=== PATIENT | female | born 1950 | race African-American/Black ===

== ENCOUNTER → 2016-07-08 | Outpatient (CLI) | payer OTHER ==
[2015-08-19 12:25] VITALS: BP 112/69
[~2016-07-08] MED LIST: ATOR10TA60 PO; HYDR-2678 PO; LISI-334 PO; SOLI10TA PO
--- NOTE | 2016-07-08 09:45 | RAD ---
DATE: 07/08/2016 EXAM: DIGITAL SCREEN RT W/CAD HISTORY: Previous left breast cancer COMPARISON: 06/22/2015, 06/27/2014 This study was interpreted with the benefit of Computerized Aided Detection (CAD). FINDINGS: The right breast is heterogeneously dense. On the cc view there is a new small density now seen anterolaterally which corresponds to the location of an interval biopsy. Reportedly that biopsy findings were benign. This probably represents scarring. No other new or enlarging breast densities are seen. Benign type calcifications are present. No suspicious microcalcifications have developed. IMPRESSION: 1. Postsurgical change anterolaterally in the right breast. 2. No mammographic evidence of malignancy. BI-RADS CATEGORY: 2 BENIGN FINDING(S) RECOMMENDED FOLLOW-UP: 12M 12 MONTH FOLLOW-UP PQRS compliance statement: Patient information was entered into a reminder system with a target due date for the next mammogram. Mammography is a sensitive method for finding small breast cancers, but it does not detect them all and is not a substitute for careful clinical examination. A negative mammogram does not negate a clinically suspicious finding and should not result in delay in biopsying a clinically suspicious abnormality. "Our facility is accredited by the [employer] Mammography Program."
== END | disposition home or self-care (01) ==
LOC: MAMMO 09:02
PROVIDERS: ATTEND Pediatrics
DX: Z12.31 Encounter for screening mammogram for malignant neoplasm of breast (principal)
CPT/HCPCS: 77052; G0202; 77067

== ENCOUNTER → 2017-07-20 | Outpatient (CLI) | payer OTHER | END | disposition home or self-care (01) | LOC: US 12:42 | DX: N63.10 Unspecified lump in the right breast, unspecified quadrant (principal) | CPT/HCPCS: 76641 ==

== ENCOUNTER → 2018-01-26 | Outpatient (CLI) | payer OTHER ==
[2015-08-19 12:25] VITALS: BP 112/69
[~2018-01-26] MED LIST changes: -SOLI10TA PO; +SOLI10TA2 PO
--- NOTE | 2018-01-26 11:37 | RAD ---
Right breast ultrasound, 01/26/2018: History: Follow-up breast nodule Previous study of 07/20/2017 a small elongated hypoechoic nodule was noted at the 3:30 location approximately 8 cm from the nipple. Today we performed a targeted ultrasound exam of that region. That nodule is redemonstrated on today's exam. It measures approximately 8 millimeters in greatest length. It is wider than tall measuring only 3 mm in AP dimension. Its margins are smooth. Allowing for technical differences it appears unchanged. Again noted is a smooth simple 8 mm cyst at the 4:00 location approximately 7 cm the nipple. This probably corresponds to the nodule seen on previous mammograms. No new abnormality is detected. IMPRESSION: 1. Small simple cyst at the 4:00 location. 2. Stable small hypoechoic nodule at the 3:30 location likely representing a complicated cyst or fibroadenoma. Further sonographic follow-up in 6 months, at the time of the patient's yearly mammography is suggested. BI-RADS 3-probably benign findings
== END | disposition home or self-care (01) ==
LOC: US 10:24
PROVIDERS: ATTEND Pediatrics
DX: Z09 Encounter for follow-up examination after completed treatment for conditions other than malignant neoplasm (principal); N60.01 Solitary cyst of right breast; N63.14 Unspecified lump in the right breast, lower inner quadrant
CPT/HCPCS: 76641

== ENCOUNTER → 2018-10-19 | Outpatient (CLI) | payer OTHER ==
[2015-08-19 12:25] VITALS: BP 112/69
--- NOTE | 2018-10-19 13:34 | RAD ---
DATE: 10/19/2018. EXAM: MAMMO GIBSON DIAG RT HISTORY: Routine screening. History of left mastectomy. COMPARISON: Previous mammogram from 07/11/2017. This study was interpreted with the benefit of Computerized Aided Detection (CAD). FINDINGS: Breast Density: HETERO The breast parenchyma Is heterogeneously dense, which could reduce sensitivity of mammography. Breast parenchyma level C. The skin and nipple are within normal limits. Scattered benign-appearing calcifications noted. IMPRESSION: Stable mammogram. However patient was supposed to get six-month follow-up ultrasound. BI-RADS CATEGORY: 0 INCOMPLETE: NEED ADDITIONAL IMAGING EVAULATION AND/OR PRIOR MAMMOGRAMS FOR COMPARISON RECOMMENDED FOLLOW-UP: ADD ADDITIONAL IMAGING ultrasound recommended of the right breast. PQRS compliance statement: Patient information was entered into a reminder system with a target due date for the next mammogram. Mammography is a sensitive method for finding small breast cancers, but it does not detect them all and is not a substitute for careful clinical examination. A negative mammogram does not negate a clinically suspicious finding and should not result in delay in biopsying a clinically suspicious abnormality. "Our facility is accredited by the [employer] Mammography Program."
== END | disposition home or self-care (01) ==
LOC: MAMMO 09:45
PROVIDERS: ATTEND Pediatrics
DX: Z12.31 Encounter for screening mammogram for malignant neoplasm of breast (principal); N64.89 Other specified disorders of breast
CPT/HCPCS: 77065; G0279; 77061

== ENCOUNTER → 2018-10-26 | Outpatient (CLI) | payer OTHER ==
[2015-08-19 12:25] VITALS: BP 112/69
--- NOTE | 2018-10-26 13:47 | RAD ---
INDICATION: 68 year-old female presents for short interval follow-up of abnormalities seen on prior breast ultrasound TECHNIQUE: Targeted high resolution sonography of the region of clinical concern was performed. COMPARISON: None ULTRASOUND FINDINGS: Targeted ultrasound of the previously described probably benign finding was again performed. 3:30 position, 8 cm from the nipple: The hypoechoic mass is more lobular on today's examination and marginally increased in size measuring 0.9 x 0.6 x 0.4 cm (when measured in a similar fashion to prior), previously 0.9 x 0.6 x 0.3 cm. 4:00 position, 7 cm from the nipple: An anechoic avascular mass of circumscribed margins and round/oval shape is present. It demonstrates posterior acoustic enhancement and a parallel orientation. It measures 0.7 x 0.7 x 0.6 cm, previously 0.8 x 0.8 x 0.6 cm. 3:00 position, 1 cm from the nipple: An anechoic avascular mass of circumscribed margins and round/oval shape is present. It demonstrates posterior acoustic enhancement and a parallel orientation. It measures 0.8 x 0.7 x 0.6 cm. 3:00 position, 2 cm from the nipple: A near anechoic mass of circumscribed margins and internal homogeneous low level echoes is present with parallel orientation and is of oval/round shape. There is no internal vascularity on Doppler interrogation. It demonstrates posterior acoustic enhancement and measures 0.6 x 0.5 x 0.3 cm. IMPRESSION: Suspicious finding at the 3:30 position, 8 cm from the nipple with changes in morphology on today's examination and marginal increase in size. Probable complicated cyst versus solid mass at the 3:00 position, 2 cm from the nipple with low-level internal echoes. RECOMMENDATION: Recommend biopsy of the lesion at the 3:30 position, 8 cm from nipple. In addition, biopsy/aspiration of the probable complicated cyst versus solid mass at the 3:00 position, 2 cm from the nipple can also be performed at the same time. BI-RADS 4: Suspicious Electronically signed by: Tan Henderson MD (10/26/2018 1:44 PM) [facility]
== END | disposition home or self-care (01) ==
LOC: US 11:43
PROVIDERS: ATTEND Pediatrics
DX: N63.14 Unspecified lump in the right breast, lower inner quadrant (principal)
CPT/HCPCS: 76641

== ENCOUNTER → 2018-12-11 | Outpatient (CLI) | payer OTHER ==
[2015-08-19 12:25] VITALS: BP 112/69
[~2018-12-11] MED LIST changes: +LIDOCAINE 1% Multi-Dose 20 ML VIAL. INJ ONE
--- NOTE | 2018-12-11 16:32 | RAD ---
Examination: US GUID NDL PLACE/ASPI/BX History: Right breast mass Comparison/Correlation: 07/20/2017, 10/26/2018 right breast ultrasound exam Findings: Risks and benefits of ultrasound-guided biopsy and aspiration were discussed with the patient. Informed consent was obtained. Limited ultrasound imaging was performed. The lesion described at the 3:30 position 8 cm from the nipple could not be delineated at this time. Biopsy was not performed as result. Right breast 3:00 region 2 cm from nipple complex cyst or mass was identified. Medial approach was utilized. Cleansing with ChloraPrep was performed. Sterile drapes were placed. Sterile gel and sterile probe cover were utilized. Approximately 5 cc 1 percent lidocaine was administered. 18-gauge spinal needle was then placed under ultrasound guidance into the lesion. Fluid was aspirated. This lesion resolved as expected of a complex cyst. No clip marker was placed. The patient tolerated procedure well without immediate complications. Impression: Successful aspiration of the 3:00 complex cyst. The 3:30 lesion 8 cm from nipple could not be delineated. This finding may represent a lymph node. Considering the relatively stable size, interval follow-up ultrasound examination in 1 year is recommended. Electronically signed by: Vivek Lopez MD (12/11/2018 4:29 PM) [facility]
== END | disposition home or self-care (01) ==
LOC: US 14:01
PROVIDERS: ATTEND Pediatrics
DX: N63.10 Unspecified lump in the right breast, unspecified quadrant (principal)
CPT/HCPCS: 19083; 76942

== ENCOUNTER → 2019-10-23 | Outpatient (CLI) | payer OTHER ==
[2015-08-19 12:25] VITALS: BP 112/69
[~2019-10-23] MED LIST changes: -LIDOCAINE 1% Multi-Dose 20 ML VIAL. INJ ONE
--- NOTE | 2019-10-23 17:35 | RAD ---
EXAM: UNILATERAL RIGHT DIGITAL 3D SCREENING MAMMOGRAPHY. HISTORY: Personal history of left breast cancer status post left mastectomy. Benign right breast biopsies. Routine screening. TECHNIQUE: Unilateral right digital 3D and tomographic images were obtained in CC and MLO projections. Computer-aided detection was applied. COMPARISON: 10/19/2018, 07/11/2017. COMPOSITION: C. The breasts are heterogeneously dense, which may obscure small masses. FINDINGS: There are no suspicious masses, microcalcifications or architectural distortion. The parenchymal pattern is stable. A region of stable architectural distortion in the subareolar region is likely postprocedural. Coarse calcifications are benign. BI-RADS CATEGORY 2: Benign. RECOMMENDATION: 1. Routine screening mammography in one year. If mammography demonstrates dense breast tissue (heterogenously dense or extremely dense, category C or D), which could hide abnormalities, and if other risk factors for breast cancer have been identified, supplemental screening tests that may be suggested by the ordering physician may be of benefit. Dense breast tissue, in and of itself, is a relatively common condition. Therefore, this information is not provided to cause undue concern, but rather to raise awareness and to promote discussion with the referring physician regarding the presence of other risk factors, in addition to dense breast tissue. The results of this mammography examination is provided to the patient and referring physician. The patient should contact their referring physician if any questions or concerns exist regarding this report. PQRS compliance statement - Patient information was entered into a reminder system with a target due date for the next mammogram. "Our facility is accredited by the [employer] Mammography [employer]." Electronically signed by: Mary Trevino MD (10/23/2019 5:32 PM) [facility]
== END | disposition home or self-care (01) ==
LOC: MAMMO 13:01
PROVIDERS: ATTEND Pediatrics
DX: Z12.31 Encounter for screening mammogram for malignant neoplasm of breast (principal); N64.89 Other specified disorders of breast; Z85.3 Personal history of malignant neoplasm of breast
CPT/HCPCS: 77061

== ENCOUNTER → 2019-11-12 | Outpatient (CLI) | payer OTHER ==
[2015-08-19 12:25] VITALS: BP 112/69
[~2019-11-12] MED LIST changes: +ALBU2.5V8 INH; +ASCO500C PO; +ASPI-630 PO; +CARV25TA2 PO; +GLIP5TAB10 PO; +LINA5TAB PO; +NAPR-695 PO; +OXYB5TAB10 PO; +SPIR25TA5 PO; +TURM538C PO
[2019-11-12 09:21] LABS: BASO % 1 % (0-3); EOS # 0.3 x10^3/uL (0.0-0.7); EOS % 6 % (0-3); HEMATOCRIT 40.1 % (36.0-47.0); HEMOGLOBIN 13.2 g/dL (12.0-15.5); LYMPH # 2.9 x10^3/uL (1.0-4.8); LYMPH % 56 % (24-48); MEAN CORPUSCULAR HEMOGLOBIN 30 pg (25-35); MEAN CORPUSCULAR HGB CONC 33 g/dL (31-37); MEAN CORPUSCULAR VOLUME 91 fL (79-100); MONO # 0.3 x10^3/uL (0.0-1.1); MONO % 6 % (0-9); NEUT # 1.7 x10^3/uL (1.8-7.7); NEUT % 32 % (31-73); PLATELET COUNT 129 x10^3/uL (140-400); RED BLOOD COUNT 4.41 x10^6/uL (3.50-5.40); RED CELL DISTRIBUTION WIDTH 15.2 % (11.5-14.5); WHITE BLOOD COUNT 5.3 x10^3/uL (4.0-11.0)
[2019-11-12 09:42] LABS: ALBUMIN 3.6 g/dL (3.4-5.0); ANION GAP 7 (6-14); BLOOD UREA NITROGEN 22 mg/dL (7-20); CALCIUM 8.8 mg/dL (8.5-10.1); CARBON DIOXIDE 28 mmol/L (21-32); CHLORIDE 107 mmol/L (98-107); CREATININE 1.2 mg/dL (0.6-1.0); GFR 53.7; GLUCOSE 125 mg/dL (70-99); POTASSIUM 3.9 mmol/L (3.5-5.1); PROTHROMBIN TIME PATIENT 14.7 SEC (11.7-14.0); SODIUM 142 mmol/L (136-145)
[2019-11-12 09:45] LABS: C-REACTIVE PROTEIN < 0.5 mg/L (0-3.3)
[2019-11-13 01:09] LABS: HEMOGLOBIN A1C 5.3 % (4.8-5.6)
== END | disposition home or self-care (01) ==
LOC: SURGPAT 13:02
PROVIDERS: ATTEND Orthopaedic Surgery
DX: M17.12 Unilateral primary osteoarthritis, left knee (principal)
CPT/HCPCS: 36415; 80048; 82040; 82306; 83036; 85025; 85610; 85730; 86140; 87641

== ENCOUNTER → 2020-09-03 | Outpatient (CLI) | payer OTHER ==
[2015-08-19 12:25] VITALS: BP 112/69
[~2020-09-03] MED LIST changes: -LISI-334 PO; +LISI20TA18 PO; +MELO15TA23 PO; +WARF-31 PO
--- NOTE | 2020-09-03 13:23 | EKG ---
[facility] [address] [place] [address] Test Date: 2020-09-03 Test Time: 13:17:37 Pat Name: ROOSEVELT RITTER Department: Room: Gender: F Partition Setter: : 1950 Requested By: JAMIA AGUILAR Order Number: [id number] Reading MD: Artie Alston Measurements Intervals [place] Rate: 54 P: 47 TN: 196 QRS: 28 QRSD: 74 T: 50 QT: 398 QTc: 379 Interpretive Statements SINUS RHYTHM QRS(T) CONTOUR ABNORMALITY CONSISTENT WITH ANTEROSEPTAL INFARCT AGE UNDETERMINED ABNORMAL ECG RI6.02 No previous ECG available for comparison Electronically Signed On 09-08-2020 9:25:56 CDT by Artie Alston
[2020-09-03 13:29] LABS: BASO % 1 % (0-3); EOS # 0.2 x10^3/uL (0.0-0.7); EOS % 3 % (0-3); HEMATOCRIT 38.6 % (36.0-47.0); HEMOGLOBIN 13.1 g/dL (12.0-15.5); LYMPH # 3.1 x10^3/uL (1.0-4.8); LYMPH % 50 % (24-48); MEAN CORPUSCULAR HEMOGLOBIN 32 pg (25-35); MEAN CORPUSCULAR HGB CONC 34 g/dL (31-37); MEAN CORPUSCULAR VOLUME 93 fL (79-100); MONO # 0.4 x10^3/uL (0.0-1.1); MONO % 7 % (0-9); NEUT # 2.5 x10^3/uL (1.8-7.7); NEUT % 40 % (31-73); PLATELET COUNT 145 x10^3/uL (140-400); RED BLOOD COUNT 4.15 x10^6/uL (3.50-5.40); RED CELL DISTRIBUTION WIDTH 13.1 % (11.5-14.5); WHITE BLOOD COUNT 6.2 x10^3/uL (4.0-11.0)
[2020-09-03 13:38] LABS: PROTHROMBIN TIME PATIENT 14.3 SEC (11.7-14.0)
[2020-09-03 13:43] LABS: ALBUMIN 3.8 g/dL (3.4-5.0); CALCIUM 9.1 mg/dL (8.5-10.1); CREATININE 1.4 mg/dL (0.6-1.0); GFR 44.9; POTASSIUM 4.3 mmol/L (3.5-5.1)
--- NOTE | 2020-09-03 16:45 | RAD ---
XR CHEST 2V History: Reason: preo -op chest ,knee surgery / Spl. Instructions: / History: Comparison: None. Findings: No consolidation or pleural effusion. Normal heart size. No pneumothorax. Impression: 1. No acute cardiopulmonary process. Electronically signed by: Erick Albright DO (09/03/2020 4:43 PM) [facility]
[2020-09-04 05:37] LABS: HEMOGLOBIN A1C 5.6 % (4.8-5.6)
== END ==
LOC: SURGPAT 12:27
PROVIDERS: ATTEND Orthopaedic Surgery
DX: Z01.818 Encounter for other preprocedural examination (principal); M17.12 Unilateral primary osteoarthritis, left knee; R94.31 Abnormal electrocardiogram [ECG] [EKG]; Z96.652 Presence of left artificial knee joint
CPT/HCPCS: 36415; 71046; 80048; 82040; 82306; 83036; 85025; 85610; 85651; 85730; 87641; 93005

== ENCOUNTER 2020-09-16 09:38 | Observation (INO) | payer OTHER ==
[2020-09-03 13:21] VITALS: BP 136/64
[~2020-09-16] VITALS: Ht 162.6 cm; Wt 77.0 kg
[2020-09-16] VITALS (8 sets, daily range): BP systolic 94–128; BP diastolic 52–70
[~2020-09-16 09:38] MED LIST changes: +ACETAMINOPHEN 500 MG TABLET PO PRN; +INSULIN LISPRO 100 UNIT/ML 3ML VIAL for OP,RR ONLY. SQ PRN; +IV RINGERS,LACTATED 1000ML 1,000 ML IV SCH; -MELO15TA23 PO; +MELOXICAM 7.5 MG TABLET PO PRN; +MORPHINE SULFATE 5 MG, KETOROLAC 30MG VIAL 30 MG, ROPIVacaine 0.5% PF 60 ML, EPINEPHrin... INT ART ONE; +PROCHLORPERAZINE 10 MG/2 ML VIAL. IVP PRN; +TRANEXAMIC ACID 1,000 MG in IV NS 50ML -- 1ST BAG INJ ONE; +TRANEXAMIC ACID 1,000 MG in IV NS 50ML -- 2ND BAG INJ ONE; -WARF-31 PO; +fentaNYL PF VIAL 100 MCG/2 ML VIAL IVP PRN
[2020-09-16] MEDS ORDERED: ONDANSETRON PF 4 MG/2 ML VIAL. ONE (09:51)
[2020-09-16] MEDS ORDERED: LIDOCAINE 2% PF 5 ML VIAL. ONE (09:51)
[2020-09-16] MEDS ORDERED: PROPOFOL 10 MG/ML (20ML) VIAL. IV ONE (09:51)
[2020-09-16] MEDS ORDERED: DEXAMETHASONE SOD PHOS 4 MG/ML VIAL ONE (09:51)
[2020-09-16] MEDS ORDERED: fentaNYL PF VIAL 250 MCG/5 ML VIAL ONE (09:51)
[2020-09-16] MEDS ORDERED: MELO15TA23 PO (10:01)
[2020-09-16] MEDS ORDERED: WARF-31 PO (10:01)
[2020-09-16] MEDS ORDERED: INSULIN LISPRO 100 UNIT/ML 3ML VIAL for OP,RR ONLY. SQ ONE (10:35)
[2020-09-16 10:41] LABS: PROTHROMBIN TIME PATIENT 14.4 SEC (11.7-14.0)
[2020-09-16] MEDS ORDERED: VANCOMYCIN 1 GM VIAL. ONE (10:47)
[2020-09-16] MEDS ORDERED: TRANEXAMIC ACID in NS IVPB 100 ML ONE (10:47)
[2020-09-16] MEDS ORDERED: ePHEDrine PF IN SALINE 50 MG/10 ML SYRINGE. IV ONE (11:59)
[2020-09-16] MEDS ORDERED: GLYCOPYRROLATE 1 MG/5 ML VIAL. ONE (12:12)
--- NOTE | 2020-09-16 12:42 | HP ---
ADMIT DATE: 09/16/2020 PREOPERATIVE HISTORY AND PHYSICAL CHIEF COMPLAINT: Left knee degenerative arthritis and pain. HISTORY: The patient has had well over a year of left knee pain going on more chronically over several years, but acutely exacerbated by a fall in the shower a little over a year ago. She has had severe pain and limitation of her activities of daily living since then and was contemplating surgery soon after the time of the fall, but had put it off due to COVID concerns and continues to have very worsening and limiting left knee pain. She indicates good control of her diabetes, which is non-insulin dependent. PAST SURGICAL HISTORY: Left breast mastectomy in 2002 and cholecystectomy. SOCIAL HISTORY: Denies smoking or drug use. Occasional alcohol consumption. MEDICATIONS: List is reviewed. ALLERGIES: She has no known drug allergies. REVIEW OF SYSTEMS: She has no recent fever, chills, chest pain, shortness of breath, focal weakness, numbness, tingling, or other constitutional symptoms. PHYSICAL EXAMINATION: VITAL SIGNS: Per admission sheet. HEENT: Atraumatic, normocephalic. HEART: Regular rate and rhythm. LUNGS: Clear to auscultation bilaterally. ABDOMEN: Benign. EXTREMITIES: Examination of the left knee, her range of motion has a flexion contracture of about 8 degrees and flexion to about 85 degrees with significant pain on both. She has crepitus within the patellofemoral joint. Collateral ligaments are stable with some mild medial collateral ligament laxity. Right knee has a range of motion of -2 to 95 degrees. Negative Lilia's test. Anterior, posterior drawer is negative. Lisandra's test is negative. She has normal alignment, stability of bilateral hips and ankles with intact motor function, distal pulses, sensation in both lower extremities throughout. IMAGING: X-rays show severe tricompartmental degenerative change in both knees. IMPRESSION: Left knee pain, worse than right and degenerative arthritis, bilateral knees. TREATMENT AND PLAN: We had previously discussed and reviewed this morning. Risks, benefits, postoperative course of total knee arthroplasty including infection, nerve root or blood vessel damage, premature wear or loosening, continued pain, medical or other anesthetic complications including blood clots among others. All her questions were answered. She wishes to proceed with surgical evaluation and treatment and will undergo outpatient. We will undergo observation in the joint center to follow. CR/MILLY DR: CR/alysha HART: 09/16/2020 11:59 TID: [id number]
--- NOTE | 2020-09-16 13:34 | PDOC4 ---
Operative Note Operative Note Date of surgery: 09/16/2020 Preoperative diagnosis: Degenerative left knee Postoperative diagnosis: Same Operative procedure: Left total knee arthroplasty Surgeon: Haleigh Assist: Braden fox Anesthesia: General Estimated blood loss: 25 cc Complications: None Specimens: Cartilage surfaces to pathology Operative indications: Please see my dictated preoperative history and physical for detailed operative indications and note that we had reviewed preoperatively risks benefits postoperative course of the surgery including the possibility of infection continued pain nerve or blood vessel damage premature wear or loosening instability medical or other anesthetic complications among others and she agrees to proceed with surgical evaluation and treatment having given informed consent Operative text: Patient was identified procedure verified patient placed in the supine position on the operating table. After adequate amounts of general anesthesia were administered the left lower extremity was prepped and draped in standard sterile fashion with a thigh tourniquet and after timeout was performed patient procedure identified and verified the left lower extremity was exsanguinated by Esmarch bandage tourniquet inflated to 300 mmHg and a midline incision was made followed by a medial parapatellar approach fat pad was excised and patella everted and the distal femur drilled to accommodate the intramedullary cutting guide which was set at 5 degrees with standard distal cut. Menisci and cruciate ligaments were excised and a tibial cut was made using the extra medullary cutting guide aligned with the ankle centerline and alignment verified with a spacer and drop shyanne. Tibia was prepared with a size D persona trial component. Femur was sized at a size 7 and AP lateral chamfer cuts were made and ligament balancing carried out. A medial release was carried out and I did achieve excellent stability with a 10 mm trial medial congruent articular surface spacer. Patella resurfacing was not accomplished due to good preservation of her patellar cartilage. She had excellent tracking. Trial components were removed thorough irrigation carried out with normal saline solution and the following Dayanna persona components were cemented in place with polymethylmethacrylate cement: A size D persona natural tibial component and size 7 standard right persona cruciate retaining femur. Excess cement was removed with a curette and a vitamin E medial congruent 10 mm height articular spacer was locked into place and the knee held into extension until cement was dry. Irrigation again carried out with dilute Betadine lavage and normal saline solution and 1 g vancomycin was placed in the knee joint. Retinaculum closed with #1 PDS suture in a running fashion subcutaneous closure with buried Vicryl sutures subcuticular closure with 3-0 strata fix Monocryl. A maria del carmen dressing was placed. Toes were noted to be warm pink following deflation of the tourniquet patient was returned to recovery room in stable condition having tolerated procedure well. Braden fox was present for the pro cedure and assisted in patient positioning prepping draping retraction closure dressings JAMIA AGUILAR MD Sep 16, 2020 13:34
[2020-09-16] MEDS ORDERED: SEVOFLURANE > 120 MINUTES. IH ONE (13:40)
[2020-09-16] MEDS ORDERED: NALOXONE 0.4 MG/ML VIAL. ONE (13:40)
[2020-09-16] MEDS ORDERED: ZOLPIDEM 5 MG TABLET. PO PRN (13:45)
[2020-09-16] MEDS ORDERED: ALBUTEROL SULFATE 2.5 MG/3 ML NEBU. INH PRN (13:45)
[2020-09-16] MEDS ORDERED: CALCIUM CARBONATE 500 MG TAB.CHEW PO PRN (13:45)
[2020-09-16] MEDS ORDERED: diphenhydrAMINE 50 MG/ML VIAL IVP PRN (13:45)
[2020-09-16] MEDS ORDERED: MORPHINE SULFATE 2 MG/ML VIAL. IVP PRN (13:45)
[2020-09-16] MEDS ORDERED: 0.9 % SODIUM CHLORIDE 10 ML DISP.SYRIN. IV PRN (13:45)
[2020-09-16] MEDS ORDERED: IV NORMAL SALINE 1000ML BAG 1,000 ML IV SCH (13:45)
[2020-09-16] MEDS ORDERED: DEXTROSE 50% 25 GM / 50ML DISP.SYRIN. IV PRN (13:45)
[2020-09-16] MEDS ORDERED: fentaNYL PF VIAL 100 MCG/2 ML VIAL IVP PRN (13:45)
[2020-09-16] MEDS ORDERED: PROCHLORPERAZINE 5 MG TABLET. PO PRN (13:45)
[2020-09-16] MEDS ORDERED: MORPHINE SULFATE 2 MG/ML VIAL. ONE (14:10)
[2020-09-16] MEDS: MORPHINE SULFATE 2 MG/ML VIAL. IVP PRN ×2 (14:12→14:22)
[2020-09-16] MEDS ORDERED: HYDROmorphone 2 MG/ML VIAL ONE (14:31)
[2020-09-16] MEDS: HYDROmorphone 2 MG/ML VIAL IVP PRN ×2 (14:33→14:43)
--- NOTE | 2020-09-16 15:02 | RAD ---
INDICATION: Reason: POST OP / Spl. Instructions: / History: COMPARISON: September 2019 IMPRESSION: Left knee: 2 views obtained. Arthroplasty changes without periprosthetic fracture or dislocation. Electronically signed by: Ezio Mckeon MD (09/16/2020 3:00 PM) [id number]
--- NOTE | 2020-09-16 15:15 | NUR ---
As soon pt arrive to unit by bed from PACU needed to go to bathroom. Pt up with walker with assist x's 2. Steady gait and voided 900cc yellow urine. Returned back to bed. Assessment completed. Dressing d/i on left knee. Elevated leg on pillow and applied ice pack. Pt able to wiggle toes easily, warm to touch and pedal pulses + bilaterally. IVF's intact and infusing. Side rails up with call light in reach. Family at bedside. Cont. monitor. Addendum: 09/16/20 at 1634 by RODNEY LI RN Only voided 200cc not 900cc.
[2020-09-16] MEDS ORDERED: WARFARIN 7.5 MG TABLET. PO ONE (16:00)
[2020-09-16] MEDS: glipiZIDE 5 MG TABLET PO SCH ×2 (16:30→21:02)
[2020-09-16] MEDS: CARVEDILOL 12.5 MG TABLET. PO SCH (17:00)
[2020-09-16] MEDS: FERROUS SULFATE 325 MG TABLET. PO SCH (17:25)
[2020-09-16] MEDS: ONDANSETRON PF 4 MG/2 ML VIAL. IVP SCH (17:25)
[2020-09-16] MEDS: ceFAZolin SODIUM IV Push 1 GM VIAL. IVP SCH ×2 (17:31→23:51)
[2020-09-16] MEDS: ONDANSETRON ODT 4 MG TAB.RAPDIS. PO SCH (17:49)
--- NOTE | 2020-09-16 18:56 | NUR ---
Zofran IV given instead of P.O.
[2020-09-16] MEDS: ATORVASTATIN CALCIUM 10 MG TABLET. PO SCH (21:02)
[2020-09-16] MEDS: OXYBUTYNIN CHLORIDE 5 MG TABLET PO SCH (21:02)
[2020-09-17] MEDS: oxyCODONE IR 5 MG TABLET PO PRN ×4 (00:08→20:40)
[2020-09-17 02:40] VITALS: BP 102/57
[2020-09-17 04:52] LABS: PROTHROMBIN TIME PATIENT 15.9 SEC (11.7-14.0)
[2020-09-17] MEDS: ceFAZolin SODIUM IV Push 1 GM VIAL. IVP SCH (05:35)
[2020-09-17] MEDS: traMADol 50 MG TABLET PO SCH ×3 (05:42→17:35)
[2020-09-17] MEDS: ONDANSETRON PF 4 MG/2 ML VIAL. IVP SCH ×3 (05:43→12:00)
[2020-09-17] MEDS: ONDANSETRON ODT 4 MG TAB.RAPDIS. PO SCH ×3 (05:44→12:00)
[2020-09-17] MEDS ORDERED: MAGNESIUM HYDROXIDE 2,400 MG/30 ML ORAL.SUSP. PO PRN (06:00)
[2020-09-17] MEDS ORDERED: GABAPENTIN 100 MG CAPSULE. PO SCH (06:00)
[2020-09-17 06:14] VITALS: BP 102/54
[2020-09-17] MEDS: LINAGLIPTIN 5 MG TABLET PO SCH (08:17)
[2020-09-17] MEDS: ASPIRIN CHEWABLE 81 MG TABLET. PO SCH (08:17)
[2020-09-17] MEDS: MULTIVITAMIN with MINERAL TABLET. PO SCH (08:17)
[2020-09-17] MEDS: glipiZIDE 5 MG TABLET PO SCH ×2 (08:17→20:46)
[2020-09-17] MEDS: ACETAMINOPHEN 500 MG TABLET PO SCH ×3 (08:18→20:40)
[2020-09-17] MEDS: FERROUS SULFATE 325 MG TABLET. PO SCH ×2 (08:18→17:34)
[2020-09-17] MEDS: MELOXICAM 7.5 MG TABLET PO SCH (08:18)
[2020-09-17] MEDS: OXYBUTYNIN CHLORIDE 5 MG TABLET PO SCH ×2 (08:18→20:39)
[2020-09-17] MEDS: SPIRONOLACTONE 25 MG TABLET PO SCH (08:19)
[2020-09-17] MEDS: CARVEDILOL 12.5 MG TABLET. PO SCH ×2 (08:23→17:37)
[2020-09-17] MEDS: LISINOPRIL 20 MG TABLET PO SCH (08:23)
--- NOTE | 2020-09-17 10:34 | NUR ---
Pharmacy Warfarin Dosing Note S: Pharmacy consulted to assist with anticoagulation therapy started 09/16/20 O: ROOSEVELT RITTER F is a 70 year old F with TKA LABS: Last INR: 1.3 Last HGB: 11.6 Last dose of 7.5 mg given on 09/16/20 at 1725 Ongoing Drug Interactions: MOBIC A:INR of 1.3 is below desired range. Target range for this patient is: 1.6 - 2.5 P: Warfarin dose: 4 mg Today at 1600 Bridge Therapy: None Next INR due 09/18/20 AM Pharmacy anticoagulation service will continue to follow. RAE BAHENA RP, 09/17/20 [id number]
[2020-09-17] MEDS ORDERED: ONDANSETRON ODT 4 MG TAB.RAPDIS. PO PRN (12:00)
[2020-09-17] MEDS ORDERED: ONDANSETRON PF 4 MG/2 ML VIAL. IVP PRN (12:00)
[2020-09-17] MEDS ORDERED: WARFARIN 4 MG TABLET. PO ONE (16:00)
[2020-09-17] MEDS ORDERED: BISACODYL 10 MG SUPP.RECT. PR PRN (16:00)
[2020-09-17 17:37] VITALS: BP 108/55
--- NOTE | 2020-09-17 18:34 | PDOC ---
PROGRESS NOTES Date of Service DATE: 09/17/20 TIME: 18:31 Subjective Subjective Problems overnight: Knee is sore, getting around pretty good Objective Vital Signs Vital Signs Date Time Temp Pulse Resp B/P (MAP) Pulse Ox O2 Delivery O2 Flow Rate FiO2 09/17/20 17:37 97.8 56 18 108/55 (72) 96 Room Air 97.8 09/16/20 18:27 18.0 Physical Exam Fredo dressing intact good early range of motion distal neurovascular status intact Labs Laboratory Tests Test 09/16/20 10:10 09/16/20 10:28 09/16/20 14:00 09/16/20 17:01 Prothrombin Time 14.4 SEC (11.7-14.0) Prothromb Time International Ratio 1.1 (0.8-1.1) Activated Partial Thromboplast Time 26 SEC (24-38) Glucose (Fingerstick) 114 mg/dL (70-99) 85 mg/dL (70-99) 98 mg/dL (70-99) Test 09/16/20 20:36 09/17/20 04:30 09/17/20 06:20 09/17/20 11:48 Glucose (Fingerstick) 131 mg/dL (70-99) 93 mg/dL (70-99) 99 mg/dL (70-99) Hemoglobin 11.6 g/dL (12.0-15.5) Prothrombin Time 15.9 SEC (11.7-14.0) Prothromb Time International Ratio 1.3 (0.8-1.1) Laboratory Tests Test 09/16/20 20:36 09/17/20 04:30 09/17/20 06:20 09/17/20 11:48 Glucose (Fingerstick) 131 mg/dL (70-99) 93 mg/dL (70-99) 99 mg/dL (70-99) Hemoglobin 11.6 g/dL (12.0-15.5) Prothrombin Time 15.9 SEC (11.7-14.0) Prothromb Time International Ratio 1.3 (0.8-1.1) Imaging Postop x-rays show excellent alignment total knee arthroplasty Assessment Assessment POD#1 total knee arthroplasty Plan Plan of Care Continue mobilize with physical therapy Warfarin anticoagulation Likely home health on discharge Justicifation of Admission Dx: Justifications for Admission: Justification of Admission Dx: N/A JAMIA AGUILAR MD Sep 17, 2020 18:34
[2020-09-17] MEDS: ATORVASTATIN CALCIUM 10 MG TABLET. PO SCH (20:39)
[2020-09-18] MEDS: ACETAMINOPHEN 500 MG TABLET PO SCH ×3 (03:00→15:02)
[2020-09-18 06:30] VITALS: BP 129/45
[2020-09-18] MEDS: traMADol 50 MG TABLET PO SCH ×4 (06:32→16:57)
[2020-09-18] MEDS ORDERED: OXYC5CAP PO (06:35)
--- NOTE | 2020-09-18 06:37 | SNU/HH DC ---
DISCHARGE WITH HOME HEALTH DISCHARGE INFORMATION: Discharge Date: Sep 18, 2020 Final Diagnosis: Degenerative left knee Condition on Discharge: Stable CODE STATUS: Code Status: Full HOME HEALTH: Face to Face: I certify this patient is under my care and that I, or a nurse practitioner or physician's geological survey field assistant working with me, had a face to face encounter that meets the physician face to face encounter requirements with this patient on [09/18/2020]. Medical Complications: DM, S/P Joint Replacement Half-Way For: Assess/Skilled Observatio RN For Eval/Treatment: Yes Physical Therapy For: Evalulation/Treatment Pt Meets Homebound Status: Limited distance walking POST DISCHARGE ORDERS: Activity Instructions for Disc: Progressive ambulation Weight Bearing Status after Di: As tolerated DIET AFTER DISCHARGE: ADA Wound/Incision Care: Ice to area for comfort, Keep wound elevated, Do not change dressing (Maintain maria del carmen dressing call if saturated, when suction machine stops cut tail of dressing and fold over to maintain seal) FOLLOW-UP: Follow up with: Dr. Ricardo or Priyanka 2 weeks postoperatively Warfarin Follow UP: [place] [facility] to manage warfarin dosage and testing CERTIFICATION STATEMENT: Certification Statement: Certification Statement: Based on the above finding, I certify that this patient is confined to the home and needs intermittent [facility] care, physical therapy and/or speech therapy, or continues to need occupational therapy.~ This patient is under my care, and I have initiated the establishment of the plan of care.~ This patient will be followed by myself or a community physician who will periodically review the plan of care. Home Meds Reported Medications Meloxicam (MELOXICAM) 15 Mg Tablet, 1 TAB PO ONC for PREOP for 30 Days, TAB 0 Refills 09/16/20 Warfarin Sodium (WARFARIN SODIUM) 5 Mg Tablet, 5 MG PO ONC for PREOP, #30 TAB 09/16/20 Turmeric Root Extract (Turmeric) 538 Mg Capsule, 538 MG PO DAILY for SUPPLEMENT, CAP 11/12/19 Ascorbic Acid (VITAMIN C) 500 Mg Capsule.er, 500 MG PO DAILY for SUPPLEMENT, CAP.SR 11/12/19 Glipizide (GLIPIZIDE) 5 Mg Tablet, 5 MG PO BID for GLUCOSE CONTROL, TAB 11/12/19 Oxybutynin Chloride (OXYBUTYNIN CHLORIDE) 5 Mg Tablet, 5 MG PO BID for BLADDER CONTROL, TAB 11/12/19 Aspirin (ASPIRIN) 81 Mg Tab.chew, 81 MG PO DAILY for BLOOD THINNER, TAB.CHEW 11/12/19 Naproxen (NAPROXEN) 375 Mg Tablet, 375 MG PO PRN BID PRN for PAIN CONTROL, TAB 11/12/19 Carvedilol (CARVEDILOL) 25 Mg Tablet, 25 MG PO BIDWMEALS for CARDIAC, TAB 11/12/19 Spironolactone (SPIRONOLACTONE) 25 Mg Tablet, 12.5 MG PO DAILY for CONTROL BP, TAB 11/12/19 Albuterol Sulfate (PROAIR HFA INHALER) 8.5 Gm Hfa.aer.ad, 2 PUFF INH PRN Q6HRS PRN for SHORTNESS OF BREATH, INHALER 0 Refills 11/12/19 Linagliptin (TRADJENTA) 5 Mg Tablet, 5 MG PO DAILY for TYPE 2 DIABETES, TAB 11/12/19 Hydrocodone/Acetaminophen (Lortab 5-325 mg Tablet) 1 Each Tablet, 1 TAB PO Q4HRS PRN for PAIN, TAB 0 Refills 08/19/15 Atorvastatin Calcium (ATORVASTATIN CALCIUM) 10 Mg Tablet, 10 MG PO HS for FOR CHOLESTEROL, #30 TAB 0 Refills 03/25/15 Lisinopril (LISINOPRIL) 20 Mg Tablet, 10 MG PO DAILY for CONTROL BP, #30 TAB 5 Refills 03/25/15 JAMIA RICARDO MD Sep 18, 2020 06:37
--- NOTE | 2020-09-18 07:07 | NUR ---
Dr. Ricardo here earlier. Patient anticipates dismissal today with [facility].
[2020-09-18 07:33] LABS: PROTHROMBIN TIME PATIENT 23.2 SEC (11.7-14.0)
[2020-09-18] MEDS: LINAGLIPTIN 5 MG TABLET PO SCH (08:17)
[2020-09-18] MEDS: LISINOPRIL 20 MG TABLET PO SCH (08:18)
[2020-09-18] MEDS: FERROUS SULFATE 325 MG TABLET. PO SCH ×2 (08:18→16:56)
[2020-09-18] MEDS: CARVEDILOL 12.5 MG TABLET. PO SCH ×2 (08:18→16:56)
[2020-09-18] MEDS: glipiZIDE 5 MG TABLET PO SCH (08:18)
[2020-09-18] MEDS: ASPIRIN CHEWABLE 81 MG TABLET. PO SCH (08:18)
[2020-09-18] MEDS: MELOXICAM 7.5 MG TABLET PO SCH (08:19)
[2020-09-18] MEDS: OXYBUTYNIN CHLORIDE 5 MG TABLET PO SCH (08:19)
[2020-09-18] MEDS: oxyCODONE IR 5 MG TABLET PO PRN ×2 (08:19→15:02)
[2020-09-18] MEDS: MULTIVITAMIN with MINERAL TABLET. PO SCH (08:19)
[2020-09-18] MEDS: SPIRONOLACTONE 25 MG TABLET PO SCH (08:22)
--- NOTE | 2020-09-18 09:28 | NUR ---
Pharmacy Warfarin Dosing Note S:Pharmacy consulted to assist with anticoagulation therapy started 09/16/20 with target INR: 1.6 - 2.5 O:ROOSEVELT RITTER F is a 70 year old F with TKA LABS: Last INR: 2.1 Last HGB: 11.6 Last dose of 4 mg given on 09/17/20 at 1518 Vitamin K given: N Drug Interaction Changes: Same Interacting Drug Ongoing Drug Interactions: MOBIC A:INR of 2.1 is within desired range. Target range for this patient is: 1.6 - 2.5 P: Warfarin dose: Hold dose today due to INR increase Bridge Therapy: None Next INR due 09/22/20 Pharmacy anticoagulation service will continue to follow. ERVIN ROSARIO RPH, 09/18/20 [id number]
[2020-09-18 09:35] LABS: HEMATOCRIT 31.9 % (36.0-47.0); HEMOGLOBIN 11.2 g/dL (12.0-15.5)
[2020-09-18 17:20] VITALS: BP 111/62
--- NOTE | 2020-09-18 17:59 | NUR ---
Patient left with her daughter around 1735. IV discontinued earlier in the day. VICKY dressing CDI and working properly. Discharge education completed by this nurse, therapy, and the doctor prior to discharge. Coumadin for home use given by pharmacist with instructions. No concerns noted at discharge. Patient was set up with [facility] by the process planner.
--- NOTE | 2020-09-18 19:08 | PATHOLOGY ---
[facility] Accession Number: [id number] . 01 Material submitted: . knee - LEFT KNEE BONE AND TISSUE. Modifiers: left . 01 Clinical history: . OSTEOARTHRITIS LEFT TOTAL KNEE ARTHROPLASTY OA . 02 Diagnosis: Segments of bone, articular cartilage, and focal attached soft tissue, left total knee arthroplasty: - Focally advanced degenerative arthritis with focal subarticular fibrosis and cystic degeneration. (JPM:[facility]; 09/18/2020) . QTP 09/18/2020 1524 Local . 02 Electronically signed: . Cole Espinoza MD, Pathologist NPI- [id number] . 01 Gross description: . The specimen is received in formalin, labeled "Whitley Bradley, left knee bone and tissue" received is a 8.1 cm aggregate of multiple irregular to rounded fragments of bone consistent with a knee joint. The articular surfaces are worn, irregular and eroded. On sectioning, [place]-white areas of eburnation are noted. Machine Sander, decalcified sections are submitted in one cassette A1.([facility]; 09/16/2020) . KARINA/KARINA 09/16/2020 2138 Local . 02 Pathologist provided ICD-10: M17.12 . 02 CPT . 116007, [id number] Specimen Comment: A courtesy copy of this report has been sent to [phone] Specimen Comment: [id number] Specimen Comment: Report sent to / DR WHITAKER Performed at: 01 [facility] [address], [place] [id number] MD Francesco Clayton MD Phone: [phone] Performed at: 02 [facility] [address] [place], [place] [id number] MD Cole Espinoza MD Phone: [phone]
== END 2020-09-18 17:40 | disposition home health service (06) ==
LOC: SURG 09:38 → 4 SOUTHEST 13:34
PROVIDERS: ADMIT Orthopaedic Surgery; ATTEND Orthopaedic Surgery
DX: M17.0 Bilateral primary osteoarthritis of knee (principal); E11.9 Type 2 diabetes mellitus without complications; Z90.49 Acquired absence of other specified parts of digestive tract; Z90.12 Acquired absence of left breast and nipple; Z96.659 Presence of unspecified artificial knee joint; Z79.899 Other long term (current) drug therapy
CPT/HCPCS: 27447; 36415; 73560; 82962; 85014; 85018; 85610; 85730; 86850; 86900; 86901; 88304; 88311; 96374; 96375; 96376; 97116; 97150; 97162; 97166; 97530; 97535; A4213; A4930; A6450; A6550; C1713; C1755; C1776; G0378; G0379; J0171; J0690; J1100; J1170; J1815; J1885; J2270; J2310; J2405; J2704; J2795; J3010; J3370; J3490; A4223

== ENCOUNTER → 2020-10-29 | Outpatient (CLI) | payer OTHER ==
[~2020-10-29] MED LIST changes: -ACETAMINOPHEN 500 MG TABLET PO PRN; -INSULIN LISPRO 100 UNIT/ML 3ML VIAL for OP,RR ONLY. SQ PRN; -IV RINGERS,LACTATED 1000ML 1,000 ML IV SCH; +MELO15TA23 PO; -MELOXICAM 7.5 MG TABLET PO PRN; -MORPHINE SULFATE 5 MG, KETOROLAC 30MG VIAL 30 MG, ROPIVacaine 0.5% PF 60 ML, EPINEPHrin... INT ART ONE; +OXYC5CAP PO; -PROCHLORPERAZINE 10 MG/2 ML VIAL. IVP PRN; -TRANEXAMIC ACID 1,000 MG in IV NS 50ML -- 1ST BAG INJ ONE; -TRANEXAMIC ACID 1,000 MG in IV NS 50ML -- 2ND BAG INJ ONE; +WARF-31 PO; -fentaNYL PF VIAL 100 MCG/2 ML VIAL IVP PRN
--- NOTE | 2020-10-29 15:20 | RAD ---
PROCEDURE: MG DIGITAL MAMMO SCREENING UNILT+GIBSON HISTORY: The patient is 70 years old and is seen for Reason: SCREENING/HX OF LEFT BREAST CANCER / Spl . Instructions: / History: . COMPARISON: October 23, 2019. October 19, 2018. November 10, 2017 and July 08, 2016. TECHNIQUE: CC and MLO views of both breasts were obtained. Images were processed by the [employer] computer-aided detection system. DENSITY: There are scattered fibroglandular densities. FINDINGS: Unchanged retroareolar architectural distortion compared to 2017. No new suspicious mass, a rchitectural distortion or microcalcification. Benign-appearing calcifications, unchanged. IMPRESSION: Negative. No evidence of malignancy. Recommend annual screening mammograms per [employer] guidelines. She will be due in one year. BI-RADS category 2 Benign Patient entered into a reminder system for annual screening mammogram. Electronically signed by: Erick Albright DO (10/29/2020 3:18 PM) [id number]
== END ==
LOC: MAMMO 13:34
PROVIDERS: ATTEND Pediatrics
DX: Z12.31 Encounter for screening mammogram for malignant neoplasm of breast (principal)
CPT/HCPCS: 77063; 77067